=== PATIENT | male | born 1985 | race Two or more races ===

== ENCOUNTER 2021-10-14 20:47 | Emergency (ER) | payer SELFPAY ==
[~2021-10-14] VITALS: Ht 180.3 cm; Wt 111.1 kg
[2021-10-14 20:47] VITALS: BP 117/78
== END 2021-10-15 06:07 | disposition left against medical advice (07) ==
LOC: ER 20:47
DX: S61.213A Laceration without foreign body of left middle finger without damage to nail, initial encounter (principal); Z53.21 Procedure and treatment not carried out due to patient leaving prior to being seen by health care provider; W26.9XXA Contact with unspecified sharp object(s), initial encounter; Y93.89 Activity, other specified; Y92.89 Other specified places as the place of occurrence of the external cause; Y99.8 Other external cause status